=== PATIENT | male | born 1960 | race Caucasian/White ===

== ENCOUNTER 2016-11-09 12:34 | Day surgery (SDC) | payer OTHER ==
[~2016-11-09] VITALS: Ht 185.4 cm; Wt 95.7 kg
--- NOTE | 2016-11-09 07:10 | PCM.HPANE ---
Patient Data Surgeon Admitting Provider: Attending Provider:Rico Art MD Primary Care Physician:Heather Mccord MD Other Provider:Nadia Mann Anesthesia Reason for Visit Polyp Colon Ht/WT & BMI Body Mass Index Allergies Coded Allergies: cabbage (Verified Allergy, Unknown, 11/08/16) shellfish derived (Verified Allergy, Unknown, 11/08/16) Medications Reported Medications Metformin ER 1,000 Mg Tablet1,000 Mg PO DAILY Ref 0 11/08/16 Lisinopril 10 Mg Ramlcf56 Mg PO DAILY 30 Days Ref 0 11/08/16 Glipizide 10 Mg [id number] Mg PO DAILY 30 Days 11/08/16 Atorvastatin (Lipitor)40 Mg [id number] Mg PO DAILY Ref 0 11/08/16 Stop/Bang Risk Assessment Category Category 1A: Patient has history of documented sleep apnea, and HAS NOT received any narcotic, sedative or anesthesia administration during this stay. Category 1B: Patient has history of documented sleep apnea, and HAS received any narcotic , sedative or anesthesia administration during this stay Category 2: Patient has SUSPECTED Obstructive Sleep Apnea, and HAS received any narcotic , sedative or anesthesia administration during this stay. Category 3: Patient has SUSPECTED Obstructive Sleep Apnea and HAS NOT received narcotic, sedative or anesthesia administration during this stay. Category 4: Outpatient in Procedural Areas with known sleep apnea or who screen positive for High Risk via the STOP/BANG questionnaire. Exam Exam General Appearance: Alert, Oriented X3, Cooperative, No Acute Distress HEENT/AIRWAY: MP 2 Lungs: Clear to Auscultation, Normal Air Movement Heart: Exam Unremarkable, Regular Rate/Rhythm, No Murmurs/Rubs/Gallops Plan Impression Patient chart reviewed, patient interviewed and anesthestic plan with risks, benefits, and alternatives discussed, and informed consent obtained. ASA Physical Status: ASA2 Mod Systemic Disease Anesthetic Plan: MAC Bene/Risks/Altern/Consents: Yes HP Complete Prior to Induction: Yes Yvonne Hernández MD Nov 09, 2016 07:10
[~2016-11-09 12:34] MED LIST: GLIP10TA10 PO; LIP40 PO; LISI10TA PO; Lactated Ringer's 1,000 ML IV ONE; METF-496 PO
[2016-11-09] MEDS ORDERED: fentaNYL-PF 50 mCg/mL 2 mL Inj ONE (12:35)
[2016-11-09] MEDS ORDERED: Propofol 10,000 mCg/mL 20 mL Inj ONE (12:35)
[2016-11-09 13:05] VITALS: BP 130/87; PULSE 89; RESP 12; O2SAT 96
[2016-11-09] MEDS ORDERED: 0.9% Sodium Chloride 1,000 ML IV ONE (14:53)
[2016-11-09] MEDS ORDERED: Ondansetron 2 mg/mL 2 mL Inj IVPUSH PRN (15:15)
[2016-11-09] MEDS ORDERED: MetoCLOpramide 5 mg/mL 2 mL Inj IVPUSH PRN (15:15)
[2016-11-09] MEDS ORDERED: Lactated Ringer's 1,000 ML IV SCH (15:15)
--- NOTE | 2016-11-09 15:17 | PCM.ANEP2 ---
Post Anesthesia Evaluation ASA/CMS Post Anesthesia VS in Patient's Normal Range?: Yes Resp Stable; Airway Patent?: Yes CV Function & Hydration Stable: Yes Mental Status Recovered?: Yes Pain control Satisfactory?: Yes N/V Control Satisfactory?: Yes Yvonne Hernández MD Nov 09, 2016 15:17
--- NOTE | 2016-11-09 15:17 | PCM.ANEP1 ---
Post Anesthesia Phase 1 PACU Phase 1 Assessment Vital Signs Vital Signs Date Time Temp Pulse Resp B/P Pulse Ox O2 Delivery O2 Flow Rate FiO2 11/09/16 13:05 36.7 89 12 130/87 96 Room Air Anesthetic Administered: MAC Level of Alertness: Awake, talking SPARKS's with Equal Strength: Yes Pain: No Nausea or Vomiting: No Oxygen Delivery: Nasal Cannula Lungs: Clear to Auscultation, Normal Air Movement Yvonne Hernández MD Nov 09, 2016 15:16
[2016-11-09 15:20] VITALS: BP 135/78; PULSE 82; RESP 14; O2SAT 97
[2016-11-09 15:32] VITALS: BP 141/81; PULSE 85; RESP 14; O2SAT 96
--- NOTE | 2016-11-09 16:31 | ENDO ---
[address] [address] ENDOSCOPY PROCEDURE PATIENT: DOV RAMIRES : 1960 MR#: [id number] ADMIT: 11/09/2016 JOB ID: [id number] DATE: 11/09/2016 PROCEDURE: Colonoscopy. INDICATIONS: Patient with a history of colon polyps as well as a family history of colon cancer. Patient's ASA classification, Mallampati score, and medications as per anesthesia note. INSTRUMENT USED: [id number]. PREPARATION QUALITY: Fair. PROCEDURE DETAILS: After informed consent was obtained, the patient was brought into the GI suite where he was placed on oxygen via nasal cannula and monitored with continuous pulse oximeter, telemetry, and blood pressure monitoring. A time-out was performed. Then, he was placed in a left lateral decubitus position and medications were administered for sedation. Digital rectal exam with palpation of the prostate was performed which was unremarkable. The colonoscope was then inserted into the rectum and advanced under direct visualization to the cecum, which was identified by the presence of the ileocecal valve and appendiceal orifice. Once the cecum was reached, the colonoscope was withdrawn back to the rectum as the mucosa and lumen were examined. In the rectum, retroflexion was performed. Following retroflexion, remaining air in the rectum was suctioned, and procedure was completed. FINDINGS: 1. In the transverse colon, there were two polyps that ranged from 4 mm to 5 mm. Both polyps were removed with a cold snare. 2. In the descending colon, there were three polyps ranging in size from diminutive to 5 mm. A diminutive polyp was removed with cold biopsy forceps. The two larger polyps that measured approximately 5 mm were removed with cold snare. IMPRESSION: 1. Two transverse colon polyps. 2. Three descending colon polyps. Recommendations: 1. Repeat colonoscopy pending polyp pathology results. COMPLICATIONS: None. ESTIMATED BLOOD LOSS: Less than 5 mL. MTDD
--- NOTE | 2016-11-21 12:13 | PATH ---
SURGICAL PATHOLOGY Attending Physician:Joi Trevizo CASE STATUS: Signed Out * Amended * PATIENT NAME: DOV RAMIRES PID: [id number] : 1960 DATE COLLECTED:11/09/2016 00:00 SPECIMEN: 1: Colon, Biopsy 2: Colon, Biopsy CLINICAL HISTORY: 1). TRANSVERSE POLYPS 2). DESCENDING POLYP FINAL DIAGNOSIS: 1. Transverse Colon Polyps, Biopsies: Portions of tubular adenoma x2; negative for high-grade dysplasia. 2. Descending Colon, Polyp, Biopsy: Portions of tubular adenoma x3; negative for high-grade dysplasia. Portion of sessile serrated adenoma x 1. ICD10: K63.5 This case was reviewed and interpreted by Dr. Nisha Mcclellan. The final diagnosis is unchanged. This amendment is issued in order for the report to cross the interface and be available in the hospital electronic medical record. GROSS DESCRIPTION: The specimen is received in two formalin filled containers labeled with the patient's name. 1). Specimen a sublabeled "transverse polyps" and consists of 2 portions of tissue which aggregate to 0.3 x 0.2 x 0.2 CM. The specimen is entirely submitted in cassette 1A. 2). The specimen is sublabeled "descending polyp" and consists of 4 portions of tissue which aggregate to 0.4 x 0.4 x 0.3 CM. The specimen is entirely submitted in cassette 2A. 11/10/2016 [facility] ICD-9 CODES: CPT CODES: 1: 41754 2: 79004 AMENDMENT(S): Amended: 11/21/2016 by Inna Alvarez Reason:Miscellaneous The final diagnosis is unchanged. This amendment is issued in order for the report to cross the interface and be available in the hospital electronic medical record. Previous Signout Date: 11/13/2016 Electronically Signed Out France Echavarria MD [facility] Pathology [facility] [address] [place] [address], [place] [address] Technical component performed at [facility], [facility] [address], [place], [address]
== END 2016-11-09 23:59 | disposition home or self-care (01) ==
LOC: END 12:34
PROVIDERS: ATTEND Internal Medicine Gastroenterology
DX: Z12.11 Encounter for screening for malignant neoplasm of colon (principal); D12.3 Benign neoplasm of transverse colon; D12.4 Benign neoplasm of descending colon; Z86.010 Personal history of colon polyps; Z80.0 Family history of malignant neoplasm of digestive organs; E11.9 Type 2 diabetes mellitus without complications; E78.5 Hyperlipidemia, unspecified; Z79.84 Long term (current) use of oral hypoglycemic drugs
CPT/HCPCS: 45380; 45385; J2250; J3010; J7030